=== PATIENT | female | born 2005 | race Two or more races ===

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

== ENCOUNTER 2023-08-20 16:03 | Emergency (ER) | payer MEDICAID, SELFPAY ==
--- NOTE | 2023-08-20 16:15 | ED_ITS ---
HPI - General Adult General Chief complaint: General Medical Stated complaint: sore throat, feeling weird Time Seen by Provider: 08/20/23 16:33 Source: patient Mode of arrival: ambulatory Limitations: no limitations History of Present Illness HPI narrative: 18-year-old female presents the ER for evaluation of sore throat for the last 4 days along with chills and subjective fevers at night. She states she has pain with swallowing, more on the left than the right. She states she has white bumps on the back of her tonsils. She denies any abdominal pain, nausea, vomiting, diarrhea. She also reports a painless bump on the outside of her vagina where she shaves. No drainage. No ulceration or tenderness of the area. She also has 2 small pimple like lesions on her face above her lip. She denies any vaginal discharge, dysuria. MD complaint: Sore throat Onset (ago): day(s) (4) Location: face, mouth and genitals Radiation: non-radiation Severity: moderate Quality: stabbing and aching Pain Consistency: intermittent Relieving factors: rest Exacerbating factors: eating Associated symptoms: denies other symptoms Treatments prior to arrival: none Related Data Previous Rx's ?Medication ?Instructions ?Recorded doxycycline hyclate 100 mg capsule 100 mg PO BID #13 caps 08/20/23 Allergies Allergy/AdvReac Type Severity Reaction Status Date / Time No Known Allergies Allergy Verified 08/20/23 16:19 Review of Systems Review of Systems: Yes all other systems are reviewed and are negative PMFSH Past Medical History Medical History Headache Myopia of both eyes Wears glasses Social History Social History Household Members Other:: Paternal aunt and twin cousins age 1111 year old Housing: Apartment Do you presently have visiting nurse or other home services: No Advance Directives: No Advance Directives Information Provided: No Do you have a plan to hurt others: No Plan Physical Exam ED Vital Signs: Vital Signs - 24 hr 08/20/23 16:16 Temperature 98.1 F Pulse Rate 114 H Respiratory Rate 16 Blood Pressure 136/89 Pulse Oximetry 97 Oxygen Delivery Method Room Air BMI result Body Mass Index 22.6 Appearance: Alert. Oriented X3. No acute distress. Head/face: normocephalic, atraumatic. 2 small pustule like lesions on the nasolabial fold on the right side, no vesicles. Eyes: Pupils equal, round and reactive to light. ENT: Pharynx normal. No tonsillar swelling, bilateral tonsillar exudate with mild erythema. Uvula midline. Neck: Normal inspection. Neck supple. Left-sided cervical lymphadenopathy, tender. CVS: Normal heart rate and rhythm. Pulses normal. Respiratory: No respiratory distress. Breath sounds normal. Abdomen: Soft and nontender. +BS x4 : Subcentimeter, scabbed, circular, nontender lesion on the mons pubis. no crusting or discharge, no ulceration Skin: Skin warm and dry. Normal skin color. Normal skin turgor. No rashes. Extremities: No lower extremity edema. No joint swelling. Neuro/psych: Oriented X 3. No motor deficit. No sensory deficit. CN II-XII intact. Normal speech and cognition. Course Course Course Narrative: This is a rapid medical exam: Additional HPI, ROS, PE not included below will be deferred to primary provider. Patient is a 18-e[age]-old female presenting to the ED with complaint of sore throat, chills/fever. Also notes two small papular/vesicular spots on her face and reports one additional spot like that on her vagina. Plan: strep and viral swabs Reevaluation(s) Reevaluation #1: Patient received in sign out pending gonorrhea throat swab. Per lab, this is a send-out and will take up to one week to result. Will treat for GC/chlamydia empirically. Plan discussed with patient who is agreeable to this. Time: 20:09 Medical Decision Making Medical Decision Making MDM Narrative: 18-year-old female presenting to the ER for evaluation of a sore throat for the last 4 days. Exam is revealing for bilateral tonsillar exudates. The lesion on her vagina appears to be a ingrown hair that is scabbed over. It is nontender and does not hurt, low suspicion for HSV. The lesions on the nasolabial fold of her face appear to be acne, low suspicion for HSV. Patient tested negative for strep throat, COVID, flu, RSV. Gonorrhea swab of the throat has been sent. She has no vaginal discharge. Her partner denies any penile discharge or symptoms of urethritis. Differential Diagnosis Differential Diagnoses: The differential diagnosis associated with the presentation includes Strep pharyngitis, COVID, flu, RSV, parotiditis, retropharyngeal abscess, peritonsillar abscess, oral infection with gonorrhea, HSV 1 or 2 Lab Data MDM Lab Attestation statement: I reviewed the patient's lab results. Labs: Lab Results 08/20/23 08/20/23 Range/Units 16:21 17:57 Urine Color Yellow Urine Appearance Clear Urine pH 6.5 (5.0-9.0) Ur Specific [place] <= 1.005 (1.005-1.025) Urine Protein Negative (Neg-Trace) mg/dL Urine Glucose (UA) Negative (Negative) mg/dL Urine Ketones Negative (Negative) mg/dL Urine Blood Negative (Negative) Urine Nitrite Negative (Negative) Ur Leukocyte Esterase Negative (Negative) Urine RBC 0-2 (0-2) /HPF Urine WBC 0-5 (0-5) /HPF Ur Squamous Epith Cells 0-2 (0-2) /HPF Urine Bacteria None Seen (None Seen) Hyaline Casts 0-2 (0-2) /LPF Influenza Type A (PCR) NEGATIVE (Negative) Influenza Type B (PCR) NEGATIVE (Negative) RSV RNA Qual (PCR) NEGATIVE (Negative) SARS-CoV-2 RNA (RT-PCR) NEGATIVE (Negative) S. pyogenes GrpA KEYANA Negative (Negative) Independent Historian Clinical information obtained from an independent historian. History obtained from or confirmed by: Other ( Signif) External Record Review External record reviewed: Outpatient record, Prior outpatient labs and Prior outpatient radiology Prescription Management I considered prescription management with: Pain Medication and Antibiotic Discharge Plan Discharge Clinical Impression: Acute tonsillitis Qualifiers: Pharyngitis/tonsillitis etiology: unspecified etiology Qualified Code(s): J03.90 - Acute tonsillitis, unspecified Patient Disposition: Home, Self-Care Instructions: Tonsillitis (ED) Additional Instructions: You were evaluated in the emergency department today for a sore throat. You are being treated for gonorrhea and chlamydia presumptively with antibiotics. You will be contacted if your test is positive. Please follow up with your primary care provider. Return to the emergency department if you develop difficulty swallowing, throat swelling, fevers, or any other concerning symptoms. Prescriptions: New doxycycline hyclate 100 mg capsule 100 mg PO BID Qty: 13 0RF Print Language: Armenian
[2023-08-20 16:16] VITALS: BP 136/89; PULSE 114; RESP 16; TEMP 36.7; O2SAT 97; BMI 22.6
[2023-08-20 16:44] LABS: IDNOW Serial# 08D9AD1C; Strep A Nucleic Acid Negative (Negative)
[2023-08-20 17:06] LABS: Influenza A PCR NEGATIVE (Negative); Influenza B PCR NEGATIVE (Negative); Resp Syncy Virus RNA Qual PCR NEGATIVE (Negative); SARS COV2 PCR INHOUSE NEGATIVE (Negative)
[2023-08-20 18:15] LABS: Appearance Urine Clear; Color Urine Yellow; Glucose Urine UA Negative (Negative); Leukocyte Esterase Urine Negative (Negative); Nitrite Urine Negative (Negative); PH 6.5 (5.0-9.0); Specific Gravity - Urine <= 1.005 (1.005-1.025); Urine Blood Negative (Negative); Urine Ketones Negative (Negative); Urine Protein Negative (Neg-Trace)
[2023-08-20 18:19] LABS: Bacteria Urine None Seen (None Seen); Hyaline Casts Urine 0-2 /LPF (0-2); RBC Urine 0-2 /HPF (0-2); Squamous Epithelial Cell Urine 0-2 /HPF (0-2); WBC Urine 0-5 /HPF (0-5)
[2023-08-20] MEDS: Doxycycline Monohydrate 100 MG CAPSULE PO (20:24)
[2023-08-20] MEDS: cefTRIAXone sodium 500 MG, Lidocaine HCl 1 % MPF 1 ML IM (20:24)
[2023-08-20 20:32] VITALS: BP 132/75; PULSE 86; RESP 16; TEMP 36.1; O2SAT 98
[2023-08-21 11:46] LABS: CT PCR NOT DETECTED (Not Detect.); NG PCR NOT DETECTED (Not Detect.)
[2023-08-26 20:28] LABS: N. gonorrhoeae RNA TMA, Throat NOT DETECTED
== END 2023-08-20 20:32 | disposition home or self-care (01) ==
PROVIDERS: Physician Assistant; Registered Nurse Emergency; Emergency Provider Emergency Medicine
DX: J03.90 Acute tonsillitis, unspecified (principal); R50.9 Fever, unspecified; N89.8 Other specified noninflammatory disorders of vagina; Z11.52 Encounter for screening for COVID-19; Z20.822 Contact with and (suspected) exposure to COVID-19
CPT/HCPCS: 0241U; 0353U; 36415; 81001; 87591; 87651; 96372; 99284; J0696

== ENCOUNTER 2023-08-21 16:19 | Outpatient (REF) | payer MEDICAID, SELFPAY ==
[2023-08-22 04:52] LABS: HIV AB/AG Nonreactive (Nonreactive); HIV Num 1 0.05 S/CO (0.00-0.99); ~HepC Num1 0.18 S/CO (0.00-0.79); ~Hepatitis C Antibody Nonreactive (Nonreactive)
[2023-08-24 09:49] LABS: RPR Rapid Plasma Reagin NON-REACTIVE (NON-REACTIVE)
[2023-08-24 19:08] LABS: Herpes Simplex Type 1 IgG <0.90 index; Herpes Simplex Type 2 IgG <0.90 index
== END 2023-08-21 16:20 | disposition home or self-care (01) ==
LOC: HO.HHCL 16:19
PROVIDERS: Visit Provider General Practice
DX: Z11.4 Encounter for screening for human immunodeficiency virus [HIV] (principal); R39.89 Other symptoms and signs involving the genitourinary system
CPT/HCPCS: 36415; 86592; 86695; 86696; 86803; 87389

== ENCOUNTER 2024-04-13 10:24 | Outpatient (REF) | payer MEDICAID, SELFPAY ==
[2024-04-13 11:57] LABS: MANUAL DIFF FLAG NO
[2024-04-13 11:58] LABS: Basophils Percent Auto 0.3 % (0-2); Eosinophils Absolute Auto 0.2 X10*3/uL (0.0-0.4); Eosinophils Percent Auto 2.9 % (0-4); Hematocrit 37.3 % (37.0-47.0); Hemoglobin 12.7 g/dl (12.0-16.0); Imm Gran Abs Auto 0.02 X10*3/uL (0.00-0.03); Imm Gran Pct Auto 0.3 % (0.0-0.4); Lymphocytes Absolute Auto 2.3 X10*3/uL (1.2-4.9); Lymphocytes Percent Auto 33.9 % (20-40); Mean Corpuscular Hemoglobin 29.9 pg (27.0-33.0); Mean Corpuscular Volume 87.8 fL (80.0-98.0); Mean Platelet Volume 11.4 fL (9.4-12.3); Monocytes Absolute Auto 0.5 X10*3/uL (0.1-1.2); Neutrophils Absolute Auto 3.8 x10*3/uL (2.0-8.3); Neutrophils Percent Auto 55.6 % (45-73); Platelet Count 248 X10*3/uL (160-400); Red Blood Count 4.25 X10*6/uL (4.20-5.50); White Blood Count 6.9 X10*3/uL (4.8-10.8)
[2024-04-13 12:15] LABS: Alanine Aminotransferase 15 U/L (0-31); Albumin Level 4.3 g/dL (3.5-5.0); Alkaline Phosphatase 67 U/L (39-117); Anion Gap 8 (12-20); Aspartate Amino Transferase 23 U/L (5-31); Bilirubin Total 0.6 mg/dL (0.0-1.0); Blood Urea Nitrogen 14 mg/dL (9-16); Calcium 9.3 mg/dL (8.4-10.2); Carbon Dioxide 27 mmol/L (22-29); Chloride 106 mmol/L (96-108); Cholesterol 172 mg/dL (<200); Estimated Glomerular Filt Rate > 60; Glucose Random 99 mg/dL (60-115); HDL Cholesterol 70 mg/dL (>40); LDL Cholesterol Calculated 82 mg/dL (<100); Potassium 3.6 mmol/L (3.3-5.1); Sodium 137 mmol/L (135-145); Total Protein 7.8 g/dL (6.5-8.0); Triglycerides 100 mg/dL (<150)
[2024-04-13 12:32] LABS: HBc Num1 0.15 S/CO (0.00-0.79); HBsAGNum1 0.35 S/CO (0.00-0.99); HIV AB/AG Nonreactive (Nonreactive); HIV Num 1 0.05 S/CO (0.00-0.99); Hepatitis B Core Antibody Nonreactive (Nonreactive); Hepatitis B Surface Antigen Negative (Negative); ~Hepatitis B Surface Antibody NONREACTIVE (Nonreactive)
[2024-04-14 22:44] LABS: HCV Log PCR <1.18 NOT DETECTED Log IU/mL (NOT DETECTED); HepC Viral Load <15 NOT DETECTED IU/mL (NOT DETECTED)
[2024-04-19 09:59] LABS: RPR Rapid Plasma Reagin NON-REACTIVE (NON-REACTIVE)
== END 2024-04-13 10:25 | disposition home or self-care (01) ==
LOC: HO.HHCL 10:24
PROVIDERS: Visit Provider Registered Nurse
DX: Z00.00 Encounter for general adult medical examination without abnormal findings (principal)
CPT/HCPCS: 36415; 80053; 80061; 85025; 86592; 86704; 86706; 87340; 87389; 87522

== ENCOUNTER 2024-04-14 09:40 | Outpatient (REF) | payer MEDICAID, SELFPAY ==
[2024-04-19 09:38] LABS: C. trachomatis RNA TMA NOT DETECTED (NOT DETECTED); N. gonorrhoeae RNA TMA NOT DETECTED (NOT DETECTED); Trichomonas (NAAT) NOT DETECTED (NOT DETECTED)
== END 2024-04-14 09:41 | disposition home or self-care (01) ==
LOC: HO.HHCLNP 09:40
PROVIDERS: Visit Provider Advanced Practice Midwife
DX: Z12.4 Encounter for screening for malignant neoplasm of cervix (principal)
CPT/HCPCS: 87491; 87591; 87661; 88175

== ENCOUNTER 2024-11-14 10:18 | Outpatient (REF) | payer MEDICAID, SELFPAY ==
[2024-11-16 19:18] LABS: TS Negative Control Passed; TS Panel A 0; TS Panel B 0; TS Positive Control Passed; TSpotTB Negative (Negative)
== END 2024-11-14 10:19 | disposition home or self-care (01) ==
LOC: HO.HHCL 10:18
PROVIDERS: PCP Registered Nurse; Visit Provider Registered Nurse
DX: Z11.1 Encounter for screening for respiratory tuberculosis (principal)
CPT/HCPCS: 36415; 86481